=== PATIENT | female | born 2000 | race Caucasian/White ===

== ENCOUNTER 2024-10-19 13:17 | Emergency (ER) | payer MEDICAID ==
[2024-10-19] MEDS: Ketorolac 60 MG/2 ML SDV IM ONE (15:16)
[2024-10-19] MEDS: Orphenadrine 60 MG/2 ML Inj IM ONE (15:18)
== END 2024-10-19 16:30 | disposition home or self-care (01) ==
LOC: JD.ED 13:17
DX: M54.41 Lumbago with sciatica, right side (principal); Z90.49 Acquired absence of other specified parts of digestive tract; Z87.891 Personal history of nicotine dependence
CPT/HCPCS: 96372; 99283; J1885; J2360